=== PATIENT | female | born 1985 | race Native Hawaiian/Other Pacific Islander ===

== ENCOUNTER 2017-06-08 15:28 | Emergency (ER) | payer MEDICAID ==
[~2017-06-08] VITALS: Ht 162.6 cm; Wt 161.0 kg
[2017-06-08 16:19] LABS: Basophils # (auto) 0.1 uL; Eosinophils # (auto) 0.2 uL; Hemoglobin 7.7 g/dL (12.2-16.2)
[2017-06-08 16:23] LABS: Basophils % (auto) 0.7 % (0.0-2.0); Eosinophils % (auto) 1.9 % (0.0-7.0); Hematocrit 27.3 % (36.0-46.0); Lymphocytes # (auto) 2.5 uL; Lymphocytes % (auto) 22.6 % (10.0-50.0); Mean Corpuscular Hemoglobin 17.5 pg (28.0-32.0); Mean Corpuscular Hgb Conc. 28.2 g/dL (32.0-36.0); Mean Corpuscular Volume 62.1 fL (80.0-100.0); Monocytes # (auto) 0.6 uL; Monocytes % (auto) 5.7 % (0.0-12.0); Neutrophils # (auto) 7.7 uL; Neutrophils % (auto) 69.1 % (37.0-80.0); Nucleated Red Blood Cells % 0.1 %; Platelet Count (auto) 328 10^3/uL (140-450); Red Blood Cells 4.41 10^6/uL (4.0-5.20); White Blood Cell 11.2 10^3/uL (4.4-10.8)
[2017-06-08 16:37] LABS: Red Cell Distribution Width 20.7 % (11.8-14.3)
[2017-06-08 16:38] LABS: Alanine Aminotransferase 19 U/L (13-56); Albumin 3.2 g/dL (3.4-5.0); Alkaline Phosphatase 98 U/L (45-117); Anion Gap 7 (5-15); Aspartate Aminotransferase 11 U/L (15-37); BUN/Creatinine Ratio 13.8; Bilirubin, Total 0.3 mg/dL (0.2-1.0); Blood Urea Nitrogen 13 mg/dL (7-18); Calcium 8.5 mg/dL (8.5-10.1); Carbon Dioxide 28 mmol/L (21-32); Chloride 105 mmol/L (98-107); GFR African American 90 mL/min; GFR Non-African American 74 mL/min; Glucose 108 mg/dL (74-106); Magnesium 2.4 mg/dL (1.6-2.6); Sodium 140 mmol/L (136-145); Total Protein 7.8 g/dL (6.4-8.2)
[2017-06-08 17:48] VITALS: BP 119/70
[2017-06-08] MEDS ORDERED: SODIUM CHLORIDE 0.9% 1,000 ML IV ONE (18:15)
== END 2017-06-08 18:57 | disposition home or self-care (01) ==
LOC: ER 15:34
DX: R07.89 Other chest pain (principal); D50.0 Iron deficiency anemia secondary to blood loss (chronic); E44.1 Mild protein-calorie malnutrition; E03.9 Hypothyroidism, unspecified; Z68.44 Body mass index [BMI] 60.0-69.9, adult
CPT/HCPCS: 36415; 71046; 80053; 83735; 84443; 84484; 85025; 93005; 96360; 99285; J7030

== ENCOUNTER 2017-07-28 11:59 | Emergency (ER) | payer MEDICAID ==
[~2017-07-28] VITALS: Ht 162.6 cm; Wt 163.3 kg
[2017-07-28 13:19] LABS: Albumin 3.3 g/dL (3.4-5.0); BUN/Creatinine Ratio 12.5; Bilirubin, Total 0.5 mg/dL (0.2-1.0); Calcium 8.3 mg/dL (8.5-10.1); Potassium 4.3 mmol/L (3.5-5.1); Total Protein 7.7 g/dL (6.4-8.2)
[2017-07-28 14:00] LABS: Basophils # (auto) 0.1 uL; Eosinophils # (auto) 0.3 uL; Hemoglobin 9.8 g/dL (12.2-16.2); Monocytes # (auto) 0.6 uL; White Blood Cell 10.2 10^3/uL (4.4-10.8)
[2017-07-28 14:02] LABS: Basophils % (auto) 0.8 % (0.0-2.0); Eosinophils % (auto) 3.4 % (0.0-7.0); Hematocrit 32.2 % (36.0-46.0); Lymphocytes # (auto) 2.4 uL; Lymphocytes % (auto) 23.5 % (10.0-50.0); Mean Corpuscular Hemoglobin 22.2 pg (28.0-32.0); Mean Corpuscular Hgb Conc. 30.5 g/dL (32.0-36.0); Mean Corpuscular Volume 72.8 fL (80.0-100.0); Monocytes % (auto) 6.1 % (0.0-12.0); Neutrophils # (auto) 6.8 uL; Neutrophils % (auto) 66.2 % (37.0-80.0); Nucleated Red Blood Cells % 0.1 %; Platelet Count (auto) 332 10^3/uL (140-450); Red Blood Cells 4.42 10^6/uL (4.0-5.20)
[2017-07-28 14:11] LABS: Red Cell Distribution Width 28.4 % (11.8-14.3)
[2017-07-28 14:21] VITALS: BP 119/65
== END 2017-07-28 15:29 | disposition home or self-care (01) ==
LOC: ER 12:07
DX: D64.9 Anemia, unspecified (principal); N93.8 Other specified abnormal uterine and vaginal bleeding; Z88.6 Allergy status to analgesic agent; Z90.49 Acquired absence of other specified parts of digestive tract
CPT/HCPCS: 36415; 76830; 76856; 80053; 84443; 84702; 85025

== ENCOUNTER 2018-04-06 08:19 | Inpatient (IN) | payer MEDICAID ==
[~2018-04-06] VITALS: Ht 162.6 cm; Wt 173.0 kg
[2018-04-06] MEDS ORDERED: ACETAMINOPHEN 500 MG TAB PO ONE (08:45)
[2018-04-06 09:01] LABS: Eosinophils # (auto) 0 uL; Hemoglobin 8.6 g/dL (12.2-16.2); Neutrophils % (auto) 93.5 % (37.0-80.0)
[2018-04-06 09:04] LABS: Basophils # (auto) 0.2 uL; Basophils % (auto) 0.7 % (0.0-2.0); Hematocrit 28.4 % (36.0-46.0); Lymphocytes # (auto) 0.6 uL; Lymphocytes % (auto) 2.7 % (10.0-50.0); Mean Corpuscular Hgb Conc. 30.1 g/dL (32.0-36.0); Mean Corpuscular Volume 66.4 fL (80.0-100.0); Monocytes # (auto) 0.7 uL; Monocytes % (auto) 3.1 % (0.0-12.0); Neutrophils # (auto) 20.7 uL; Platelet Count (auto) 292 10^3/uL (140-450); Red Blood Cells 4.29 10^6/uL (4.0-5.20); Red Cell Distribution Width 19.6 % (11.8-14.3); White Blood Cell 22.1 10^3/uL (4.4-10.8)
[2018-04-06 09:16] LABS: Albumin 3.1 g/dL (3.4-5.0); BUN/Creatinine Ratio 11.5; Potassium 3.8 mmol/L (3.5-5.1)
[2018-04-06 09:19] LABS: Bilirubin, Total 0.6 mg/dL (0.2-1.0); Lactic Acid w/Reflex 2.7 mmol/L (0.4-2.0); Total Protein 7.7 g/dL (6.4-8.2)
[2018-04-06 13:13] LABS: Urine Bacteria FEW /hpf (None Seen); Urine Blood 2+ /uL (Negative); Urine Specific Gravity 1.003 (1.001-1.035); Urine WBC 1 /hpf (0 - 5)
[2018-04-06] MEDS ORDERED: PIPERACILLIN-TAZOB 3.375GM 100 ML IV ONE (13:30)
[2018-04-06] MEDS ORDERED: SODIUM CHLORIDE 0.9% 1,000 ML IV ONE ×2 (14:02)
[2018-04-06] MEDS ORDERED: NITROGLYCERIN 0.4 MG SL TAB SL PRN (15:45)
[2018-04-06] MEDS ORDERED: MORPHINE SULFATE 4 MG/ML SYR/VIAL IV PRN ×2 (15:45→16:00)
[2018-04-06] MEDS: SODIUM CHLORIDE 0.9% 1,000 ML IV SCH (15:47)
[2018-04-06] MEDS ORDERED: LORazepam 0.5 MG TAB PO PRN (16:00)
[2018-04-06] MEDS ORDERED: ALBUTEROL SULF 2.5 MG/0.5ML(0.5%) NEB SOLN NEB PRN (16:00)
[2018-04-06] MEDS ORDERED: DEXTROSE (50%) 50ML SYRG IV PRN (16:00)
[2018-04-06] MEDS ORDERED: LACTULOSE 20Gm/30ML SOLN PO PRN (16:00)
[2018-04-06] MEDS ORDERED: PROMETHAZINE HCL 25 MG/ML 1ML IV PRN (16:00)
[2018-04-06] MEDS ORDERED: HYDROcodone-ACET 5/325MG TAB PO PRN (16:00)
[2018-04-06] MEDS ORDERED: TEMAZEPAM 15 MG CAP PO PRN (16:00)
[2018-04-06 16:12] VITALS: BP 130/55
[2018-04-06 16:44] LABS: Amphetamine Screen, Urine NEGATIVE (NEGATIVE); Barbiturate Scree,Urine NEGATIVE (NEGATIVE); Benzodiazephine Screen, Urine NEGATIVE (NEGATIVE); Cannabinoid Screen, Urine POSITIVE (NEGATIVE); Cocaine Screen, Urine NEGATIVE (NEGATIVE); Opiate Scree,Urine NEGATIVE (NEGATIVE); Phencyclidine Screen, Urine NEGATIVE (NEGATIVE)
[2018-04-06] MEDS: LEVOFLOXACIN 500MG 100 ML IV SCH (17:55)
[2018-04-06] MEDS: ACETAMINOPHEN 500 MG TAB PO PRN (17:55)
[2018-04-06] MEDS: ACCU-CHEK COMFORT CURVE STRIP VI SCH (18:08)
--- NOTE | 2018-04-06 18:12 | NUR ---
Telemetry admit from ER NIRMAL HERNANDEZ admitted to Telemetry unit after SBAR received. Patient oriented to Conchita Escobar, primary RN, unit, room, bed, and unit policies regarding patient care and visiting hours. Patient now on continuous telemetry monitoring, tele box #15 and telemetry reading on arrival to unit is ST . Patient placed on bedside oxygen 2L NC.Patient encouraged to call if they need something. All questions and concerns addressed, patient verbalized understanding.
[2018-04-06] MEDS: ALBUTEROL SULF 2.5 MG/0.5ML(0.5%) NEB SOLN NEB SCH (18:28)
[2018-04-06] MEDS: IPRATROPIUM BROM 0.5 MG/2.5ML INH SOL NEB SCH (18:28)
--- NOTE | 2018-04-06 18:38 | NUR ---
Patients temperature is 103.1, Blood pressure is 112/33, patient alert and oriented, no c/o pain. Initiated cooling measures, and elevated patients feet. No s/s of distress stated. Will continue to monitor.
[2018-04-06 18:40] LABS: Amylase 33 U/L (25-115); Lipase 64 U/L (73-393)
[2018-04-06] MEDS ORDERED: LEVO25TA6 PO (18:44)
--- NOTE | 2018-04-06 19:00 | NUR ---
Reassessed temperature, 102.7. Patient is alert and oriented x4, no c/o pain. Will medicate as prescribed by doctors orders.
--- NOTE | 2018-04-06 19:36 | NUR ---
End of shift note: Patient resting in bed with cool/wet washcloths on forehead. Patient on 2L NC, no c/o pain/SOB. Bed at lowest position and call light at bed side. Care endorsed to KATIANA RN
[2018-04-06 20:10] VITALS: BP 101/61
[2018-04-06] MEDS ORDERED: IOHEXOL 350 MG/ML 100ML IJ ONE (20:16)
[2018-04-06 22:00] VITALS: BP 101/61
--- NOTE | 2018-04-06 22:30 | NUR ---
CALLED DR. HAQUE REGARDING PATIENT'S TACHYCARDIA. SHE IS SUSTAINED BETWEEN 110'S-120'S BUT SHE GOES UP TO HIGH THE 140'S WHEN ACTIVE. HE STATED IF HER BLOOD PRESSURE FALLS LOWER THAN THE 101 SYSTOLIC AT THE TIME THEN NOTIFY HIM.
[2018-04-07] MEDS: ACCU-CHEK COMFORT CURVE STRIP VI SCH ×4 (00:21→18:19)
[2018-04-07 00:26] VITALS: BP 128/58
[2018-04-07] MEDS: ACETAMINOPHEN 500 MG TAB PO PRN ×2 (04:19→14:37)
--- NOTE | 2018-04-07 04:25 | NUR ---
PATIENT IS RUNNING A TEMP AT 102.2. I ADMINISTERED TYLENOL, REMOVED BLANKET AND GAVE HER AN ICE PACK. WILL RECHECK TO SEE PROGRESSION.
[2018-04-07 04:52] VITALS: BP 129/67
[2018-04-07] MEDS: IPRATROPIUM BROM 0.5 MG/2.5ML INH SOL NEB SCH ×4 (06:36→19:32)
[2018-04-07] MEDS: ALBUTEROL SULF 2.5 MG/0.5ML(0.5%) NEB SOLN NEB SCH ×4 (06:36→19:32)
[2018-04-07 06:53] LABS: Eosinophils # (auto) 0 uL; Hemoglobin 8.4 g/dL (12.2-16.2); Monocytes # (auto) 0.5 uL
[2018-04-07 06:56] LABS: Basophils # (auto) 0.1 uL; Basophils % (auto) 0.5 % (0.0-2.0); Hematocrit 28.3 % (36.0-46.0); Lymphocytes # (auto) 0.8 uL; Lymphocytes % (auto) 6.2 % (10.0-50.0); Mean Corpuscular Hemoglobin 19.8 pg (28.0-32.0); Mean Corpuscular Hgb Conc. 29.8 g/dL (32.0-36.0); Mean Corpuscular Volume 66.7 fL (80.0-100.0); Monocytes % (auto) 3.7 % (0.0-12.0); Neutrophils # (auto) 11.4 uL; Neutrophils % (auto) 89.6 % (37.0-80.0); Platelet Count (auto) 271 10^3/uL (140-450); Red Blood Cells 4.24 10^6/uL (4.0-5.20); White Blood Cell 12.8 10^3/uL (4.4-10.8)
[2018-04-07 07:08] LABS: Potassium 3.2 mmol/L (3.5-5.1)
[2018-04-07 07:11] LABS: Red Cell Distribution Width 20.4 % (11.8-14.3)
[2018-04-07 07:15] LABS: BUN/Creatinine Ratio 9.3; Bilirubin, Total 0.7 mg/dL (0.2-1.0); Calcium 8.1 mg/dL (8.5-10.1); Total Protein 7.5 g/dL (6.4-8.2)
--- NOTE | 2018-04-07 07:33 | NUR ---
Opening Shift Note Assumed care of patient, awake and alert. No S/S of distress/SOB or pain. Instructed on POC and to call for assist PRN, will continue to monitor for changes Q1hr and PRN.
[2018-04-07 08:00] VITALS: BP 87/63
[2018-04-07 09:00] VITALS: BP 87/63
[2018-04-07] MEDS: PANTOPRAZOLE 40 MG TAB PO SCH (10:21)
[2018-04-07] MEDS: ENOXAPARIN SOD 40 MG/0.4 ML SYRINGE SC SCH (10:22)
[2018-04-07] MEDS: SODIUM CHLORIDE 0.9% 1,000 ML IV SCH ×2 (10:24→17:58)
[2018-04-07 13:00] VITALS: BP 129/71
--- NOTE | 2018-04-07 14:38 | NUR ---
PATIENT TEMPERATURE 102.2, MEDICATED PRESCRIBED BY MD ORDERS. INITIATED COOLING MEASURES. WILL CONTINUE TO MONITOR.
--- NOTE | 2018-04-07 15:15 | NUR ---
PATIENTS TEMPERATURE IS 102.5, PAGED DR. QUEZADA.
[2018-04-07] MEDS ORDERED: OSELTAMIVIR 75 MG CAP PO SCH (16:15)
[2018-04-07] MEDS ORDERED: POTASSIUM EFFERVESENT TAB 25 MEQ PO ONE (16:15)
--- NOTE | 2018-04-07 17:00 | NUR ---
PATIENTS TEMPERATURE IS 103.0 MD ORDERED TYLENOL 650MG PO Q4 HRS PRN . ORDERS READ BACK AND VERIFIED. PATIENT IS A&OX4 AND NO SYMPTOMS OF DISTRESS/SOB. WILL CONTINUE TO MONITOR Q1HR AND NEEDED. WILL CONTINUE COOLING MEASURES.
[2018-04-07 18:10] VITALS: BP 111/77
[2018-04-07] MEDS: LEVOFLOXACIN 500MG 100 ML IV SCH (18:16)
[2018-04-07] MEDS: CLINDAMYCIN 600MG IV 50 ML IV SCH (18:16)
[2018-04-07] MEDS: ACETAMINOPHEN 325 MG TAB PO PRN (18:28)
--- NOTE | 2018-04-07 18:40 | NUR ---
collected influenza swab. Will send to lab.
--- NOTE | 2018-04-07 19:08 | NUR ---
end of shift note: Patient sitting up in bed, no s/s of distress noted or stated. Call light at bed side and bed at lowest position. Family at bed side. Will endorse care to NOC RN.
[2018-04-07] MEDS ORDERED: SODIUM CHLORIDE 0.9% 1,000 ML IV ONE (20:30)
[2018-04-08] MEDS: ALBUTEROL SULF 2.5 MG/0.5ML(0.5%) NEB SOLN NEB SCH ×4 (00:05→19:23)
[2018-04-08] MEDS: IPRATROPIUM BROM 0.5 MG/2.5ML INH SOL NEB SCH ×4 (00:05→19:23)
[2018-04-08] MEDS: CLINDAMYCIN 600MG IV 50 ML IV SCH ×3 (00:34→16:18)
[2018-04-08] MEDS: SODIUM CHLORIDE 0.9% 1,000 ML IV SCH ×2 (00:34→12:15)
[2018-04-08] MEDS: ACCU-CHEK COMFORT CURVE STRIP VI SCH ×4 (05:23→17:11)
[2018-04-08] MEDS: LEVOTHYROXINE SODIUM 25 MCG TAB PO SCH (05:50)
[2018-04-08 06:34] LABS: Basophils # (auto) 0.1 uL; Eosinophils # (auto) 0.1 uL; Hemoglobin 7.1 g/dL (12.2-16.2); Monocytes # (auto) 0.8 uL; Nucleated Red Blood Cells % 0.1 %
[2018-04-08 06:37] LABS: Basophils % (auto) 0.6 % (0.0-2.0); Eosinophils % (auto) 0.4 % (0.0-7.0); Hematocrit 24.4 % (36.0-46.0); Lymphocytes # (auto) 1.7 uL; Mean Corpuscular Hemoglobin 20.2 pg (28.0-32.0); Mean Corpuscular Hgb Conc. 29.2 g/dL (32.0-36.0); Mean Corpuscular Volume 69.2 fL (80.0-100.0); Monocytes % (auto) 5.8 % (0.0-12.0); Neutrophils # (auto) 10.7 uL; Neutrophils % (auto) 80.2 % (37.0-80.0); Platelet Count (auto) 174 10^3/uL (140-450); Red Blood Cells 3.52 10^6/uL (4.0-5.20); White Blood Cell 13.3 10^3/uL (4.4-10.8)
[2018-04-08 06:51] LABS: BUN/Creatinine Ratio 9.2; Calcium 7.5 mg/dL (8.5-10.1); Magnesium 2.5 mg/dL (1.6-2.6)
[2018-04-08 06:56] VITALS: BP 124/60
--- NOTE | 2018-04-08 07:25 | NUR ---
Opening Shift Note Received report from Eloise RN. Assumed care of patient, awake and alert. No S/S of distress or pain. Complained of tolerable SOB. Instructed on POC and to call for assist PRN, will continue to monitor for changes Q1hr and PRN.
[2018-04-08 08:00] VITALS: BP 115/67
[2018-04-08 09:00] VITALS: BP 115/67
[2018-04-08] MEDS: PANTOPRAZOLE 40 MG TAB PO SCH (09:12)
[2018-04-08] MEDS: ENOXAPARIN SOD 40 MG/0.4 ML SYRINGE SC SCH (09:13)
--- NOTE | 2018-04-08 10:43 | NUR ---
CALLED CT AND CONFIRM PATIENT'S CT SCAN SCHEDULED TONIGHT, SPOKE WITH DWAYNE AND CONFIRMED THAT IT WILL BE 1999 TON. PATIENT MADE AWARE AND VERBALIZED UNDERSTANDING.
[2018-04-08 13:00] VITALS: BP 118/74
--- NOTE | 2018-04-08 13:18 | NUR ---
INFORMED DWAYNE FROM CT TO DO CT SCAN WITH AND WITHOUT CONTRAST OF CHEST TONIGHT ORDERED BY DR. QUEZADA.
--- NOTE | 2018-04-08 15:09 | NUR ---
RECHECKED TEMP: 99.1, NOT 101. WILL CONTINUE CARE.
[2018-04-08 16:31] VITALS: BP 112/55
[2018-04-08] MEDS: LEVOFLOXACIN 500MG 100 ML IV SCH (17:11)
--- NOTE | 2018-04-08 18:30 | NUR ---
IV insertion NEw IV access obtained for CT scan ray, via clean sterile technique by inserting gauge catheter 20 at left upper arm after 2 attempts. IV secured properly. No trauma to site. Patient tolerated well.
--- NOTE | 2018-04-08 19:30 | NUR ---
Opening Shift Note Assumed care of patient, awake and alert. No S/S of distress/SOB or pain. Family at bedside. Instructed on POC and to call for assist PRN, will continue to monitor for changes Q1hr and PRN.
--- NOTE | 2018-04-08 21:00 | NUR ---
Called radiology to verify when they would perform CT angio at 2100. CT done and patient back at 2130.
[2018-04-08] MEDS ORDERED: IOHEXOL 350 MG/ML 100ML IJ ONE (21:26)
[2018-04-08 21:31] VITALS: BP 100/59
[2018-04-09] VITALS (14 sets, daily range): BP systolic 108–137; BP diastolic 54–75
[2018-04-09] MEDS: ACCU-CHEK COMFORT CURVE STRIP VI SCH ×4 (00:30→17:14)
[2018-04-09] MEDS: ALBUTEROL SULF 2.5 MG/0.5ML(0.5%) NEB SOLN NEB SCH ×4 (00:30→19:24)
[2018-04-09] MEDS: IPRATROPIUM BROM 0.5 MG/2.5ML INH SOL NEB SCH ×4 (00:30→19:24)
[2018-04-09] MEDS: SODIUM CHLORIDE 0.9% 1,000 ML IV SCH ×3 (00:35→17:14)
--- NOTE | 2018-04-09 01:00 | NUR ---
CT results not available until this time even after asking for STAT read. Added lab for CBC in am per protocol as labs showing 7.1 Hgb.
[2018-04-09] MEDS: CLINDAMYCIN 600MG IV 50 ML IV SCH ×3 (01:05→17:00)
[2018-04-09] MEDS: LEVOTHYROXINE SODIUM 25 MCG TAB PO SCH (06:37)
--- NOTE | 2018-04-09 07:22 | NUR ---
Opening Shift Note Received report from Bharat MENDEZ. Assumed care of patient, asleep. No S/S of distress/SOB or pain. Placed call light within reach, kept 2 side rails up and bed on its lowest position, will continue to monitor for changes Q1hr and PRN.
[2018-04-09] MEDS: ENOXAPARIN SOD 40 MG/0.4 ML SYRINGE SC SCH (09:08)
[2018-04-09] MEDS: PANTOPRAZOLE 40 MG TAB PO SCH (09:08)
[2018-04-09 09:12] LABS: Basophils # (auto) 0 uL; Lymphocytes # (auto) 1.6 uL
[2018-04-09 09:16] LABS: Basophils % (auto) 0.4 % (0.0-2.0); Eosinophils # (auto) 0.3 uL; Eosinophils % (auto) 2.7 % (0.0-7.0); Hematocrit 23.1 % (36.0-46.0); Lymphocytes % (auto) 16.7 % (10.0-50.0); Mean Corpuscular Hemoglobin 19.9 pg (28.0-32.0); Mean Corpuscular Hgb Conc. 30.2 g/dL (32.0-36.0); Monocytes # (auto) 0.8 uL; Monocytes % (auto) 8.4 % (0.0-12.0); Neutrophils # (auto) 6.9 uL; Neutrophils % (auto) 71.8 % (37.0-80.0); Nucleated Red Blood Cells % 0.1 %; Platelet Count (auto) 211 10^3/uL (140-450); Red Blood Cells 3.49 10^6/uL (4.0-5.20); White Blood Cell 9.6 10^3/uL (4.4-10.8)
[2018-04-09 09:38] LABS: Red Cell Distribution Width 20.2 % (11.8-14.3)
--- NOTE | 2018-04-09 09:52 | NUR ---
INFORMED DR. Andres QUEZADA BY PHONE ABOUT PATIENT'S LOW HGB OF 7. CALL WENT STRAIGHT TO [employer], LEFT A MESSAGE.
--- NOTE | 2018-04-09 10:26 | NUR ---
RECEIVED TELEPHONE ORDER FROM DR Andres QUEZADA TO ADD IRON PANEL IN BLOOD IN AM. SAID NO NEED FOR BLOOD TRANSFUSION.
--- NOTE | 2018-04-09 10:30 | NUR ---
CALLED DR. CERVANTES, SPOKE WITH EMERGENCY EXCHANGE AND LEFT INQUIRY ABOUT PATIENT IF GOING HOME WITH OXYGEN OR STAY IN THE HOSPITAL PER INQURY OF DR. Andres QUEZADA. WILL WAIT FOR CALL BACK.
[2018-04-09 11:04] LABS: % Iron Saturation 3.6 % (15-50)
--- NOTE | 2018-04-09 11:15 | NUR ---
NIRMAL HERNANDEZ states they want to leave the floor Against Medical Advice (AMA) to go outside and smoke. Patient encouraged to stay on floor and not smoke. Dr notified of patient's wishes. Patient advised of the risks and benefits of leaving AMA. Patient verbalized understanding and signed required AMA form. Addendum: 04/09/18 at 1312 by YASMIN MITTAL RN wrong patient. disregard entry.
--- NOTE | 2018-04-09 12:00 | NUR ---
BLOOD CONSENT PATIENT SIGNED CONSENTS AND VERBALIZED UNDERSTANDING.
--- NOTE | 2018-04-09 12:15 | NUR ---
DR. Andres Quezada at bedside. Received verbal order to get CBC 1 hour after blood transfusion. Call MD if rpt hgb is less than 7.8.
[2018-04-09] MEDS ORDERED: CLIN1CAP4 PO (12:37)
[2018-04-09] MEDS ORDERED: TAMIFLU PO (12:37)
[2018-04-09] MEDS ORDERED: LEVO500T21 PO (12:37)
--- NOTE | 2018-04-09 13:22 | NUR ---
CALLED ON-CALL CURVE SAW OPERATOR FOR SOCIAL SERVICE CONSULT OF HH AND HOME OXYGEN. SAID TO FAX [facility] THE FF FORMS: FACE SHEET, H&P, ORDER AND ABG WITH CO-OX RESULT. FAX #: [phone]
--- NOTE | 2018-04-09 13:26 | NUR ---
ORDERED ABG WITH CO-OX PROTOCOL FOR HOME OXYGEN REQUIREMENT.
[2018-04-09] MEDS: OSELTAMIVIR 75 MG CAP PO SCH ×2 (13:45→21:46)
--- NOTE | 2018-04-09 14:00 | NUR ---
SPOKE WITH DMITRY DOG OR ANIMAL SITTER TO FAX THE FF FORMS TO [facility]: FACE SHEET, H&P, DISCHARGE SUMMARY, AND ORDER. FAX #: [phone]
--- NOTE | 2018-04-09 14:00 | NUR ---
IV removal Noted IV due for change. IV DC'd with clean sterile technique, catheter fully intact. Pressure dressing applied to site. Patient tolerated well.
--- NOTE | 2018-04-09 14:15 | NUR ---
IV insertion New IV access obtained, via clean sterile technique by inserting gauge catheter 22 at left forearm after 1 attempt. IV secured properly. No trauma to site. Patient tolerated well.
--- NOTE | 2018-04-09 14:36 | NUR ---
CALLED DR CERVANTES IF PATIENT IS OK TO GO HOME. SPOKE WITH EXCHANGE AND SAID HE WILL RELAY THE INQUIRY. CALLED DR. WELLER TO CONFIRM ALSO IF PATIENT CAN GO HOME TODAY ORDERED BY DR. QUEZADA. SPOKE WITH EXCHANGE AND SAID HE WILL RELAY THE INQUIRY FOR CLEARANCE FOR DISCHARGE. WILL WAIT BOTH FOR CALL BACKS.
--- NOTE | 2018-04-09 14:42 | NUR ---
DR. WELLER CALLED BACK AND SAID HE WILL SEE THE PATIENT FIRST, HE WILL COME AND VISIT THE PATIENT TODAY.
--- NOTE | 2018-04-09 15:10 | NUR ---
Dr. Medina at bedside. GI consult done. Received verbal order that patient is cleared GI-b[place]at[place], bleeding is more on Gyne issues. Patient made aware and verbalized understanding.
--- NOTE | 2018-04-09 15:15 | NUR ---
FAXED [facility] AND [facility] THE FORMS REQUIRED FOR HH EVAL AND HOME OXYGEN RESPECTIVELY. SARA ANDRES MADE AWARE.
--- NOTE | 2018-04-09 15:45 | NUR ---
TYPE AND SCREEN DONE, BLOOD IS NOW READY. WILL GET IT FROM BLOOD BANK.
--- NOTE | 2018-04-09 16:00 | NUR ---
HOME OXYGEN DELIVERED AT BEDSIDE. SARA ANDRES MADE AWARE.
--- NOTE | 2018-04-09 16:17 | NUR ---
BLOOD TRANSFUSION 1 UNIT OF PRBC STARTED, WITNESSED BY MARCUS MENDEZ. WILL CONTINUE TO MONITOR.
--- NOTE | 2018-04-09 17:02 | NUR ---
WILL HOLD CLINDAMYCIN FOR NOW, WILL ADMINISTER AFTER THE BLOOD TRANSFUSION.
--- NOTE | 2018-04-09 17:08 | NUR ---
RESCHEDULE CBC FOR 1800 TO 2100 PROTOCOL. BLOOD TRANSFUSION STILL ONGOING.
[2018-04-09] MEDS: FERROUS SULFATE 325 MG TAB PO SCH (17:13)
--- NOTE | 2018-04-09 18:00 | NUR ---
DR. CERVANTES DID NOT CALL BACK FOR DISCHARGE CLEARANCE.
--- NOTE | 2018-04-09 18:04 | NUR ---
CLINDAMYCIN AND LEVAQUIN IV HOLD, BLOOD IS STILL ONGOING, WILL ENDORSE TO NIGHT NURSE.
--- NOTE | 2018-04-09 19:14 | NUR ---
SPOKE WITH DR. Andres QUEZADA REGARDING PATIENT STILL ONGOING BLOOD TRANSFUSION, RPT CBC WILL BE AROUND 2100 TONIGHT. ALSO INFORMED THAT DR. CERVANTES DID NOT CALL BACK FOR PULMO CLEARANCE. SAID TO CHANGE THE DISCHARGE DATE TO TOMORROW. INFORMED KAUSHIK JAMES NURSE.
--- NOTE | 2018-04-09 19:23 | NUR ---
CLINDAMYCIN NOT GIVEN DUE TO BLOOD TRANSFUSION ONGOING. PHARMACIST INFORMED.
[2018-04-09] MEDS: LEVOFLOXACIN 500MG 100 ML IV SCH (20:05)
[2018-04-09 21:30] LABS: Eosinophils # (auto) 0.4 uL; Monocytes # (auto) 0.6 uL; Monocytes % (auto) 5.9 % (0.0-12.0)
[2018-04-09 21:32] LABS: Basophils # (auto) 0 uL; Basophils % (auto) 0.3 % (0.0-2.0); Eosinophils % (auto) 3.8 % (0.0-7.0); Hematocrit 25.4 % (36.0-46.0); Hemoglobin 7.6 g/dL (12.2-16.2); Lymphocytes # (auto) 1.8 uL; Lymphocytes % (auto) 18.7 % (10.0-50.0); Mean Corpuscular Hemoglobin 20.6 pg (28.0-32.0); Mean Corpuscular Volume 68.4 fL (80.0-100.0); Neutrophils # (auto) 6.8 uL; Neutrophils % (auto) 71.3 % (37.0-80.0); Nucleated Red Blood Cells % 0.4 %; Platelet Count (auto) 213 10^3/uL (140-450); Red Blood Cells 3.72 10^6/uL (4.0-5.20); White Blood Cell 9.5 10^3/uL (4.4-10.8)
[2018-04-09 21:37] LABS: Red Cell Distribution Width 20.5 % (11.8-14.3)
[2018-04-09] MEDS: DOCUSATE SOD 100 MG CAP PO SCH (21:45)
--- NOTE | 2018-04-09 22:47 | NUR ---
PAGED DR. QUEZADA REGARDING THE HGB LEVEL. NEW LABS SHOWING 7.6 AFTER 1 UNIT INFUSED. LEFT MESSAGE AT EXCHANGE.
--- NOTE | 2018-04-09 23:38 | NUR ---
Opening Shift Note Assumed care of patient, awake and alert. No S/S of distress/SOB or pain. Family at bedside. Instructed on POC and to call for assist PRN, will continue to monitor for changes Q1hr and PRN. Addendum: 04/09/18 at 8472 by Bharat Reed RN Opening at 1930
[2018-04-10] MEDS: IPRATROPIUM BROM 0.5 MG/2.5ML INH SOL NEB SCH ×3 (00:36→11:59)
[2018-04-10] MEDS: ALBUTEROL SULF 2.5 MG/0.5ML(0.5%) NEB SOLN NEB SCH ×3 (00:36→11:59)
--- NOTE | 2018-04-10 00:37 | NUR ---
Endorsed patient to Laura MENDEZ. Patient resting and awake in bed no s/s of distress or pain.
--- NOTE | 2018-04-10 00:38 | NUR ---
Received report from Bharat MENDEZ, taking over care of patient at this time Patient awake and alert. No S/S of sob, denies pain. Will continue to monitor changes q1hr and PRN.
[2018-04-10] MEDS: ACCU-CHEK COMFORT CURVE STRIP VI SCH ×3 (00:41→11:17)
[2018-04-10] MEDS: CLINDAMYCIN 600MG IV 50 ML IV SCH ×2 (00:56→08:12)
[2018-04-10] MEDS: ACETAMINOPHEN 325 MG TAB PO PRN (01:09)
[2018-04-10 05:30] VITALS: BP 116/60
[2018-04-10 06:06] LABS: Basophils # (auto) 0 uL; Basophils % (auto) 0.5 % (0.0-2.0); Eosinophils # (auto) 0.4 uL; Eosinophils % (auto) 4.6 % (0.0-7.0); Hematocrit 25.1 % (36.0-46.0); Hemoglobin 7.8 g/dL (12.2-16.2); Lymphocytes # (auto) 1.6 uL; Lymphocytes % (auto) 17.6 % (10.0-50.0); Mean Corpuscular Hemoglobin 20.9 pg (28.0-32.0); Mean Corpuscular Volume 67.3 fL (80.0-100.0); Monocytes # (auto) 0.6 uL; Monocytes % (auto) 7.1 % (0.0-12.0); Neutrophils # (auto) 6.3 uL; Neutrophils % (auto) 70.2 % (37.0-80.0); Nucleated Red Blood Cells % 0.5 %; Platelet Count (auto) 217 10^3/uL (140-450); Prothrombin Time 10.7 sec (9.27-12.13); Red Blood Cells 3.73 10^6/uL (4.0-5.20); White Blood Cell 8.9 10^3/uL (4.4-10.8)
[2018-04-10 06:07] LABS: Red Cell Distribution Width 20.6 % (11.8-14.3)
[2018-04-10 06:08] LABS: Calcium 7.6 mg/dL (8.5-10.1); Potassium 3.7 mmol/L (3.5-5.1)
[2018-04-10 06:10] LABS: BUN/Creatinine Ratio 9.7
[2018-04-10] MEDS: LEVOTHYROXINE SODIUM 25 MCG TAB PO SCH (06:26)
[2018-04-10] MEDS: SODIUM CHLORIDE 0.9% 1,000 ML IV SCH (06:27)
--- NOTE | 2018-04-10 07:30 | NUR ---
Opening Shift Note REceived report from Laura MENDEZ. Assumed care of patient, asleep. No S/S of distress/SOB or pain.Placed call light within reach, kept 2 side rails up, maintained hooked to oxygen at 2lpm via nasal cannula, will continue to monitor for changes Q1hr and PRN.
[2018-04-10] MEDS: FERROUS SULFATE 325 MG TAB PO SCH ×2 (07:52→11:17)
[2018-04-10 08:00] VITALS: BP 125/71
--- NOTE | 2018-04-10 08:39 | NUR ---
CALLED DR. CERVANTES, SPOKE WITH EXCHANGE. LEFT A MESSAGE IF CAN CLEAR THE PATIENT FOR DISCHARGE TODAY. SAID SHE WILL RELAY THE INQUIRY, WILL WAIT FOR CALL BACK.
[2018-04-10 08:44] VITALS: BP 125/71
--- NOTE | 2018-04-10 09:02 | NUR ---
RECEIVED A CALL FROM DR. QUEZADA, SAID THAT PATIENT CAN GO HOME TODAY. HE SAID THAT DR. CERVANTES'S NOTES FROM YESTERDAY IS ENOUGH FOR PULMO CLEARANCE FOR PATIENT TO GO HOME TODAY. PATIENT MADE AWARE AND VERBALIZED UNDERSTANDING. WILL FF UP DOCUMENT MANAGEMENT CONSULTANT FOR HOME HEALTH EVAL.
--- NOTE | 2018-04-10 09:08 | NUR ---
CALLED SARA DALTON TO FF UP PATIENT'S HH EVAL. SAID SHE WILL SET IT UP TODAY AND WILL GIVE NURSE AN UPDATE.
--- NOTE | 2018-04-10 09:15 | NUR ---
PATIENT HAS BEEN ACCEPTED BY [facility] [phone]. START OF CARE WILL BE 24 TO 48 HOURS AFTER DISCHARGE. Addendum: 04/10/18 at 1256 by Harjinder Greenfield RN CM ORDER AND CLINICALS FAXED TO [facility] REQUESTING AUTH
[2018-04-10] MEDS: OSELTAMIVIR 75 MG CAP PO SCH (09:22)
[2018-04-10] MEDS: PANTOPRAZOLE 40 MG TAB PO SCH (09:22)
[2018-04-10] MEDS: DOCUSATE SOD 100 MG CAP PO SCH (09:22)
--- NOTE | 2018-04-10 10:31 | NUR ---
SPOKE WITH DR. Andres QUEZADA REGARDING RX FOR RPT BLOOD DRAWS, SAID TO GET THE PRESCRIPTION FROM THE PCP.
--- NOTE | 2018-04-10 10:33 | NUR ---
CALLED OFFICE SOF DR. WELLER AND DR. CERVANTES FOR PATIENT'S APPOINTMENTS, SAID TO GET AUTH FROM PCP FIRST. PATIENT MADE AWARE AND VERBALIZED UNDERSTANDING.
[2018-04-10 10:37] VITALS: BP 125/71
[2018-04-10] MEDS ORDERED: FER325T PO (11:06)
[2018-04-10] MEDS ORDERED: DOCU100C8 PO (11:06)
[2018-04-10 11:17] LABS: Free T4 (Free Thyroxine) 0.73 ng/dL (0.89-1.76)
[2018-04-10 11:18] LABS: T3 Total 0.54 ng/mL (0.60-1.81)
--- NOTE | 2018-04-10 11:59 | NUR ---
Respiratory note: SCHEDULED MED NEB TX NOT GIVEN DUE TO PATIENT REFUSAL, PATIENT STATES SHE IS BEING DISCHARGED. NO RESPIRATORY DISTRESS NOTED OR STATED. RN YASMIN Campos. AT BEDSIDE AND IS AWARE OF PATIENT REFUSAL.
--- NOTE | 2018-04-10 12:40 | NUR ---
Discharge instructions given as ordered. Encourage to follow up with PMD as instructed. All questions and concerns addressed. Patient verbalized understanding. Medication reconciliation form completed and copy given to patient. Home oxygen with patient. IV removed with catheter intact, pressure dressing applied. Telemetry unit returned to [facility]. Patient taken to vehicle via wheelchair with all personal belongings, accompanied by staff and family member. No distress noted at time of departure.
[2018-04-10 13:00] VITALS: BP 122/68
--- NOTE | 2018-04-11 08:20 | NUR ---
O/C NOTE. HOME O2 ORDERED THRU [facility] AUTH FOR HOME 02 PER TYLER OF [facility] IS [id number] AND WAS CALLED INTO [facility]. I RECEIVED A PHONE CALL YESTERDAY THAT DID NOT HAVE AUTH. I CALLED AND SPOKE TO TIM AND AGAIN GAVE AUTH FOR HOME O2
== END 2018-04-10 12:40 | disposition home health service (06) | DRG 720 ==
LOC: ER 08:19 → TELE 15:40 → TELE-WESTW 19:08
PROVIDERS: ADMIT Internal Medicine; ATTEND Internal Medicine
PROC: 30233N1 Transfusion of Nonautologous Red Blood Cells into Peripheral Vein, Percutaneous Approach (ICD-10-PCS; principal; 2018-04-09)
DX: A41.9 Sepsis, unspecified organism (principal); J96.01 Acute respiratory failure with hypoxia; E66.01 Morbid (severe) obesity due to excess calories; E87.1 Hypo-osmolality and hyponatremia; F12.90 Cannabis use, unspecified, uncomplicated; D50.0 Iron deficiency anemia secondary to blood loss (chronic); E86.0 Dehydration; E03.9 Hypothyroidism, unspecified; F15.90 Other stimulant use, unspecified, uncomplicated; R73.9 Hyperglycemia, unspecified; N92.0 Excessive and frequent menstruation with regular cycle; J21.9 Acute bronchiolitis, unspecified; K42.9 Umbilical hernia without obstruction or gangrene; N93.8 Other specified abnormal uterine and vaginal bleeding; J11.1 Influenza due to unidentified influenza virus with other respiratory manifestations; L03.116 Cellulitis of left lower limb; Z79.899 Other long term (current) drug therapy; Z90.89 Acquired absence of other organs; Z68.44 Body mass index [BMI] 60.0-69.9, adult
CPT/HCPCS: 36415; 36600; 70450; 71046; 71250; 71275; 74176; 76856; 80048; 80053; 80061; 80307; 81001; 82150; 82270; 82805; 82962; 83036; 83540; 83550; 83605; 83690; 83735; 84439; 84443; 84480; 84702; 85025; 85379; 85610; 85730; 86710; 86850; 86900; 86901; 86920; 87040; 87086; 87804; 93970; 94640; 96361; 96374; G0378; J1956; J2543; J3490